=== PATIENT | male | born 1960 | race Caucasian/White ===

== ENCOUNTER 2022-07-06 20:41 | Inpatient (IN) ==
[2022-07-07] MEDS ORDERED: LEVOFLOXACIN INJ 500 MG/100 ML PREMIX IV ONE (00:03)
[2022-07-07 01:19] LABS: Basophils % 0.2 % (0.0-0.8); Eosinophils # 0.1 10*3/uL (0.0-0.87); Eosinophils % 2.1 % (0.00-10.9); Hematocrit 33.2 VOL% (42.0-52.0); Hemoglobin 10.9 GM/DL (14.0-18.0); Immature Granulocytes % 0.4 %; Immature Granulocytes Absolute 0.02 #; Lymphocytes # 0.9 10*3/uL (1.4-4.0); Lymphocytes % 19.1 % (21.2-54.2); Mean Corpuscular HGB Conc 32.8 GM/DL (32-36); Mean Corpuscular Volume 84.9 FL (87-102); Mean Platelet Volume 9.7 FL (9.6-12.0); Monocytes # 0.7 10*3/uL (0.11-0.8); Monocytes % 15.4 % (1.7-12.7); Neutrophils % 62.8 % (38.7-73.9); Platelet Count 118 T/CUMM (130-400); Red Blood Count 3.91 MC/CUMM (3.8-5.5); Red Cell Distribution Width 15.1 % (9.3-17.3); White Blood Count 4.7 T/CUMM (4-12)
[2022-07-07 01:56] LABS: Albumin 2.5 G/DL (3.4-5.0); Bilirubin,Total 1.6 MG/DL (0.20-1.00); Calcium 8.3 MG/DL (8.5-10.1); Potassium 2.9 MMOL/L (3.5-5.1); Total Protein 7.3 G/DL (6.4-8.2)
[2022-07-07] MEDS ORDERED: POTASSIUM CHLORIDE 20 MEQ TABLET PO STA (02:58)
[2022-07-07] MEDS ORDERED: MORPHINE 2 MG/1 ML SYRINGE IV PRN (04:22)
[2022-07-07] MEDS ORDERED: GLUCAGON 1 MG VIAL IM PRN (04:22)
[2022-07-07] MEDS ORDERED: ONDANSETRON 4 MG/2 ML VIAL IV PRN (04:22)
[2022-07-07] MEDS ORDERED: ACETAMINOPHEN 325 MG TABLET PO PRN (04:22)
[2022-07-07] MEDS ORDERED: DEXTROSE 10% 250 ML BAG IV PRN (04:33)
[2022-07-07] MEDS ORDERED: ALBUTEROL INHALER 18 GM INH PRN (04:37)
[2022-07-07] MEDS ORDERED: MELATONIN 3 MG TABLET PO PRN (04:40)
[2022-07-07] MEDS ORDERED: DEXAMETHASONE 4 MG/1 ML VIAL IV SCH (06:01)
[2022-07-07] MEDS ORDERED: POTASSIUM CHLORIDE 20 MEQ TABLET PO ONE (08:00)
[2022-07-07] MEDS: ASCORBIC ACID 500 MG TABLET PO SCH ×2 (08:46→21:44)
[2022-07-07] MEDS: FAMOTIDINE 20 MG TABLET PO SCH ×2 (08:46→21:44)
[2022-07-07] MEDS: CETIRIZINE 10 MG TABLET PO SCH (08:47)
[2022-07-07] MEDS: PANTOPRAZOLE 40 MG TABLET PO SCH (08:47)
[2022-07-07 09:00] LABS: Ferritin 95.7 ng/mL (26-388)
[2022-07-07] MEDS ORDERED: ZINC GLUCONATE 50 MG TABLET PO SCH (09:00)
[2022-07-07] MEDS ORDERED: CHOLECALCIFEROL 1,000 UNIT TABLET PO SCH (09:00)
[2022-07-07] MEDS ORDERED: REMDESIVIR 200 MG in SODIUM CHLORIDE 0.9% 210 ML IV ONE (09:00)
[2022-07-07] MEDS: CHOLECALCIFEROL 5,000 UNIT TABLET PO SCH ×2 (09:03→21:45)
[2022-07-07] MEDS: ZINC SULFATE 220 MG CAPSULE PO SCH (09:03)
[2022-07-07] MEDS: AZITHROMYCIN INJ 500 MG in SODIUM CHLORIDE 0.9% 250 ML IV SCH (10:26)
[2022-07-07] MEDS: VANCOMYCIN INJ 750 MG in SODIUM CHLORIDE 0.9% 250 ML IV SCH ×2 (10:26→20:04)
[2022-07-07] MEDS: PIPERACILLIN/TAZOBACTAM 3,375 MG in SODIUM CHLORIDE 0.9% 100 ML IV SCH ×2 (12:56→21:45)
[2022-07-07] MEDS: methylPREDNISolone SOD SUC 40 MG/1 ML VIAL IV SCH (15:06)
[2022-07-07] MEDS: ENOXAPARIN 40 MG/0.4 ML SYRINGE SUBCUT SCH (21:44)
[2022-07-07] MEDS: MELATONIN 3 MG TABLET PO SCH (21:44)
[2022-07-08] MEDS: methylPREDNISolone SOD SUC 40 MG/1 ML VIAL IV SCH ×4 (01:05→21:09)
[2022-07-08] MEDS: PIPERACILLIN/TAZOBACTAM 3,375 MG in SODIUM CHLORIDE 0.9% 100 ML IV SCH ×3 (05:18→21:08)
[2022-07-08 05:31] LABS: Basophils % 0.4 % (0.0-0.8); Hematocrit 32.2 VOL% (42.0-52.0); Hemoglobin 10.5 GM/DL (14.0-18.0); Immature Granulocytes % 0.4 %; Immature Granulocytes Absolute 0.01 #; Lymphocytes # 0.7 10*3/uL (1.4-4.0); Lymphocytes % 26.2 % (21.2-54.2); Mean Corpuscular HGB Conc 32.6 GM/DL (32-36); Mean Corpuscular Volume 84.5 FL (87-102); Mean Platelet Volume 10.4 FL (9.6-12.0); Monocytes # 0.2 10*3/uL (0.11-0.8); Monocytes % 7.7 % (1.7-12.7); Neutrophils % 65.3 % (38.7-73.9); Platelet Count 127 T/CUMM (130-400); Red Blood Count 3.81 MC/CUMM (3.8-5.5); Red Cell Distribution Width 14.6 % (9.3-17.3); White Blood Count 2.6 T/CUMM (4-12)
[2022-07-08 05:56] LABS: Albumin 2.1 G/DL (3.4-5.0); Bilirubin,Total 0.7 MG/DL (0.20-1.00); Calcium 8.3 MG/DL (8.5-10.1); Osmolality,Calculated 283.3 MOS/KG (273-304); Total Protein 6.6 G/DL (6.4-8.2)
[2022-07-08 06:13] LABS: Ferritin 79.7 ng/mL (26-388)
[2022-07-08] MEDS: ZINC SULFATE 220 MG CAPSULE PO SCH (08:00)
[2022-07-08] MEDS ORDERED: POTASSIUM CHLORIDE 20 MEQ TABLET PO ONE ×2 (08:00→10:00)
[2022-07-08] MEDS: CETIRIZINE 10 MG TABLET PO SCH (08:01)
[2022-07-08] MEDS: CHOLECALCIFEROL 5,000 UNIT TABLET PO SCH ×2 (08:01→22:26)
[2022-07-08] MEDS: ASCORBIC ACID 500 MG TABLET PO SCH ×2 (08:01→21:08)
[2022-07-08] MEDS: FAMOTIDINE 20 MG TABLET PO SCH ×2 (08:01→21:09)
[2022-07-08] MEDS: PANTOPRAZOLE 40 MG TABLET PO SCH (08:01)
[2022-07-08] MEDS: VANCOMYCIN INJ 750 MG in SODIUM CHLORIDE 0.9% 250 ML IV SCH ×2 (08:37→21:07)
[2022-07-08] MEDS ORDERED: REMDESIVIR 100 MG in SODIUM CHLORIDE 0.9% 100 ML IV SCH (09:00)
[2022-07-08] MEDS ORDERED: MAGNESIUM SULF RIDER 2 GM/50 ML PREMIX IV ONE (09:51)
[2022-07-08] MEDS: AZITHROMYCIN INJ 500 MG in SODIUM CHLORIDE 0.9% 250 ML IV SCH (10:33)
[2022-07-08] MEDS: ALBUTEROL INHALER 18 GM INH SCH ×2 (13:48→18:12)
[2022-07-08] MEDS: ENOXAPARIN 40 MG/0.4 ML SYRINGE SUBCUT SCH (21:10)
[2022-07-08] MEDS: MELATONIN 3 MG TABLET PO SCH (22:26)
[2022-07-09] MEDS: ALBUTEROL INHALER 18 GM INH SCH ×4 (02:45→21:00)
[2022-07-09 05:30] LABS: Hematocrit 29.8 VOL% (42.0-52.0); Hemoglobin 9.6 GM/DL (14.0-18.0); Immature Granulocytes % 0.9 %; Immature Granulocytes Absolute 0.03 #; Lymphocytes # 0.6 10*3/uL (1.4-4.0); Lymphocytes % 16.9 % (21.2-54.2); Mean Corpuscular HGB Conc 32.2 GM/DL (32-36); Mean Corpuscular Volume 84.9 FL (87-102); Mean Platelet Volume 10.6 FL (9.6-12.0); Monocytes # 0.3 10*3/uL (0.11-0.8); Monocytes % 9.9 % (1.7-12.7); Neutrophils % 72.3 % (38.7-73.9); Platelet Count 132 T/CUMM (130-400); Red Blood Count 3.51 MC/CUMM (3.8-5.5); Red Cell Distribution Width 14.6 % (9.3-17.3); White Blood Count 3.4 T/CUMM (4-12)
[2022-07-09] MEDS: methylPREDNISolone SOD SUC 40 MG/1 ML VIAL IV SCH ×4 (05:37→21:00)
[2022-07-09] MEDS: PIPERACILLIN/TAZOBACTAM 3,375 MG in SODIUM CHLORIDE 0.9% 100 ML IV SCH ×3 (05:37→20:32)
[2022-07-09 05:56] LABS: Calcium 7.8 MG/DL (8.5-10.1); Osmolality,Calculated 290.6 MOS/KG (273-304)
[2022-07-09 06:00] LABS: Ferritin 62.6 ng/mL (26-388)
[2022-07-09] MEDS: VANCOMYCIN INJ 750 MG in SODIUM CHLORIDE 0.9% 250 ML IV SCH (08:28)
[2022-07-09] MEDS: CETIRIZINE 10 MG TABLET PO SCH (08:29)
[2022-07-09] MEDS: CHOLECALCIFEROL 5,000 UNIT TABLET PO SCH ×2 (08:29→20:31)
[2022-07-09] MEDS: ASCORBIC ACID 500 MG TABLET PO SCH ×2 (08:29→20:50)
[2022-07-09] MEDS: ZINC SULFATE 220 MG CAPSULE PO SCH (08:29)
[2022-07-09] MEDS: PANTOPRAZOLE 40 MG TABLET PO SCH (08:29)
[2022-07-09] MEDS: FAMOTIDINE 20 MG TABLET PO SCH ×2 (08:29→20:31)
[2022-07-09] MEDS: AZITHROMYCIN INJ 500 MG in SODIUM CHLORIDE 0.9% 250 ML IV SCH (10:22)
[2022-07-09] MEDS ORDERED: POTASSIUM CHLORIDE 20 MEQ TABLET PO ONE (10:45)
[2022-07-09] MEDS ORDERED: HYDROmorphone 2 MG TABLET PO PRN (12:24)
[2022-07-09] MEDS ORDERED: IPRATROPIUM INH SCH (13:00)
[2022-07-09] MEDS ORDERED: ALBUTEROL INH SCH (13:00)
[2022-07-09] MEDS: guaiFENesin/DM ER 600-30 MG TABLET PO SCH ×2 (13:29→20:38)
[2022-07-09] MEDS: LACTULOSE 20 GM/30 ML UDCUP PO SCH ×2 (15:04→20:31)
[2022-07-09] MEDS: MELATONIN 3 MG TABLET PO SCH (20:30)
[2022-07-09] MEDS: ENOXAPARIN 40 MG/0.4 ML SYRINGE SUBCUT SCH (20:46)
[2022-07-09] MEDS ORDERED: BUDESONIDE 0.5 MG/2 ML NEB RESP TX SCH (21:00)
[2022-07-10] MEDS: ALBUTEROL INHALER 18 GM INH SCH ×4 (01:00→19:25)
[2022-07-10 06:13] LABS: Hematocrit 30.4 VOL% (42.0-52.0); Hemoglobin 9.8 GM/DL (14.0-18.0); Immature Granulocytes % 0.3 %; Immature Granulocytes Absolute 0.01 #; Lymphocytes # 0.5 10*3/uL (1.4-4.0); Lymphocytes % 18.1 % (21.2-54.2); Mean Corpuscular HGB Conc 32.2 GM/DL (32-36); Mean Corpuscular Volume 85.9 FL (87-102); Mean Platelet Volume 10.5 FL (9.6-12.0); Monocytes # 0.4 10*3/uL (0.11-0.8); Monocytes % 13.7 % (1.7-12.7); Neutrophils % 67.9 % (38.7-73.9); Platelet Count 133 T/CUMM (130-400); Red Blood Count 3.54 MC/CUMM (3.8-5.5); Red Cell Distribution Width 14.6 % (9.3-17.3); White Blood Count 2.9 T/CUMM (4-12)
[2022-07-10] MEDS: methylPREDNISolone SOD SUC 40 MG/1 ML VIAL IV SCH ×3 (06:25→21:23)
[2022-07-10] MEDS: PIPERACILLIN/TAZOBACTAM 3,375 MG in SODIUM CHLORIDE 0.9% 100 ML IV SCH (06:27)
[2022-07-10 06:28] LABS: Calcium 8.5 MG/DL (8.5-10.1); Osmolality,Calculated 285.8 MOS/KG (273-304); Potassium 3.2 MMOL/L (3.5-5.1)
[2022-07-10 06:31] LABS: Albumin 2.1 G/DL (3.4-5.0); Bilirubin,Direct 0.15 MG/DL (0.0-0.20); Bilirubin,Indirect 0.3 MG/DL (0.0-1.0); Bilirubin,Total 0.4 MG/DL (0.20-1.00); Total Protein 6.3 G/DL (6.4-8.2)
[2022-07-10 06:38] LABS: Ferritin 51.6 ng/mL (26-388)
[2022-07-10 06:47] LABS: Albumin 2.1 G/DL (3.4-5.0); Bilirubin,Total 0.4 MG/DL (0.20-1.00); Osmolality,Calculated 288.6 MOS/KG (273-304); Potassium 3.3 MMOL/L (3.5-5.1); Total Protein 6.3 G/DL (6.4-8.2)
[2022-07-10] MEDS ORDERED: POTASSIUM CHLORIDE 20 MEQ TABLET PO ONE (08:30)
[2022-07-10] MEDS: LACTULOSE 20 GM/30 ML UDCUP PO SCH ×3 (09:12→18:12)
[2022-07-10] MEDS: MULTIVITAMIN (CENTRUM) TABLET PO SCH (09:12)
[2022-07-10] MEDS: ZINC SULFATE 220 MG CAPSULE PO SCH (09:12)
[2022-07-10] MEDS: SPIRONOLACTONE 100 MG TABLET PO SCH (09:12)
[2022-07-10] MEDS: FOLIC ACID 1 MG TABLET PO SCH (09:12)
[2022-07-10] MEDS: CHOLECALCIFEROL 5,000 UNIT TABLET PO SCH ×2 (09:13→21:23)
[2022-07-10] MEDS: ASCORBIC ACID 500 MG TABLET PO SCH ×2 (09:13→21:23)
[2022-07-10] MEDS: PANTOPRAZOLE 40 MG TABLET PO SCH (09:13)
[2022-07-10] MEDS: guaiFENesin/DM ER 600-30 MG TABLET PO SCH ×2 (09:13→21:23)
[2022-07-10] MEDS: PREGABALIN 75 MG CAPSULE PO SCH (09:13)
[2022-07-10] MEDS: FAMOTIDINE 20 MG TABLET PO SCH ×2 (09:13→21:23)
[2022-07-10] MEDS: AZITHROMYCIN INJ 500 MG in SODIUM CHLORIDE 0.9% 250 ML IV SCH (10:59)
[2022-07-10] MEDS ORDERED: traZODone 50 MG TABLET PO PRN (11:21)
[2022-07-10] MEDS ORDERED: cefTRIAXone 1,000 MG in SODIUM CHLORIDE 0.9% 100 ML IV SCH (12:00)
[2022-07-10] MEDS: FUROSEMIDE 40 MG/4 ML VIAL IV SCH (17:11)
[2022-07-10] MEDS: MELATONIN 3 MG TABLET PO SCH (21:23)
[2022-07-10] MEDS: ENOXAPARIN 40 MG/0.4 ML SYRINGE SUBCUT SCH (21:44)
[2022-07-11] MEDS: LACTULOSE 20 GM/30 ML UDCUP PO SCH ×3 (00:36→13:10)
[2022-07-11] MEDS: ALBUTEROL INHALER 18 GM INH SCH (00:36)
[2022-07-11 03:29] LABS: Hematocrit 33.7 VOL% (42.0-52.0); Immature Granulocytes % 1.6 %; Immature Granulocytes Absolute 0.04 #; Lymphocytes # 0.5 10*3/uL (1.4-4.0); Lymphocytes % 19.4 % (21.2-54.2); Mean Corpuscular HGB Conc 32.6 GM/DL (32-36); Mean Corpuscular Volume 84.7 FL (87-102); Mean Platelet Volume 9.9 FL (9.6-12.0); Monocytes # 0.4 10*3/uL (0.11-0.8); Monocytes % 14.2 % (1.7-12.7); Neutrophils % 64.8 % (38.7-73.9); Platelet Count 147 T/CUMM (130-400); Red Blood Count 3.98 MC/CUMM (3.8-5.5); Red Cell Distribution Width 14.4 % (9.3-17.3); White Blood Count 2.5 T/CUMM (4-12)
[2022-07-11 03:48] LABS: Calcium 8.4 MG/DL (8.5-10.1); Osmolality,Calculated 286.8 MOS/KG (273-304); Potassium 3.2 MMOL/L (3.5-5.1)
[2022-07-11 03:52] LABS: Ferritin 50.8 ng/mL (26-388)
[2022-07-11] MEDS: methylPREDNISolone SOD SUC 40 MG/1 ML VIAL IV SCH (05:37)
[2022-07-11] MEDS ORDERED: POTASSIUM CHLORIDE 20 MEQ TABLET PO ONE (10:15)
[2022-07-11] MEDS: AZITHROMYCIN INJ 500 MG in SODIUM CHLORIDE 0.9% 250 ML IV SCH (10:24)
[2022-07-11] MEDS: FUROSEMIDE 40 MG/4 ML VIAL IV SCH ×2 (10:27→17:56)
[2022-07-11] MEDS: ASCORBIC ACID 500 MG TABLET PO SCH (10:27)
[2022-07-11] MEDS: ZINC SULFATE 220 MG CAPSULE PO SCH (10:27)
[2022-07-11] MEDS: CHOLECALCIFEROL 5,000 UNIT TABLET PO SCH (10:27)
[2022-07-11] MEDS: SPIRONOLACTONE 100 MG TABLET PO SCH (10:27)
[2022-07-11] MEDS: FAMOTIDINE 20 MG TABLET PO SCH (10:28)
[2022-07-11] MEDS: PREGABALIN 75 MG CAPSULE PO SCH (10:28)
[2022-07-11] MEDS: FOLIC ACID 1 MG TABLET PO SCH (10:28)
[2022-07-11] MEDS: MULTIVITAMIN (CENTRUM) TABLET PO SCH (10:28)
[2022-07-11] MEDS: guaiFENesin/DM ER 600-30 MG TABLET PO SCH (10:30)
[2022-07-11] MEDS ORDERED: POTASSIUM CHLORIDE 20 MEQ TABLET PO PRN (11:27)
[2022-07-11] MEDS ORDERED: MAGNESIUM SULF RIDER 2 GM/50 ML PREMIX IV PRN (11:27)
[2022-07-11] MEDS ORDERED: MAGNESIUM SULF RIDER 4 GM/100 ML PREMIX IV PRN (11:27)
[2022-07-11 12:20] VITALS: BP 125/69
[2022-07-11] MEDS ORDERED: methylPREDNISolone SOD SUC 40 MG/1 ML VIAL IV SCH (18:00)
[2022-07-11] MEDS ORDERED: RIFAXIMIN 550 MG TABLET PO SCH (21:00)
[2022-07-12] MEDS ORDERED: SPIRONOLACTONE 100 MG TABLET PO SCH (09:00)
== END 2022-07-11 17:45 | disposition left against medical advice (07) | DRG 177 ==
LOC: N.ED 20:41 → SUATTDRO 07-07 04:28 → N.3E 07-07 04:28
PROVIDERS: ADMIT Internal Medicine; ATTEND Internal Medicine